=== PATIENT | female | born 1990 | race African-American/Black ===

== ENCOUNTER 2022-12-11 07:36 | Emergency (ER) | payer OTHER ==
[~2022-12-11] VITALS: Ht 149.9 cm; Wt 78.2 kg
[2022-12-11 08:35] VITALS: BP 126/92; PULSE 83; RESP 18; TEMP 97.7; O2SAT 95
[2022-12-11] MEDS ORDERED: IBUP-1456 PO (09:44)
[2022-12-11] MEDS ORDERED: METH-1182 PO (09:44)
== END 2022-12-11 09:50 | disposition home or self-care (01) ==
LOC: ER 07:36
DX: S16.1XXA Strain of muscle, fascia and tendon at neck level, initial encounter (principal); V49.88XA Car occupant (driver) (passenger) injured in other specified transport accidents, initial encounter; Y93.89 Activity, other specified; Y92.89 Other specified places as the place of occurrence of the external cause; Y99.8 Other external cause status
CPT/HCPCS: 72040

== ENCOUNTER 2023-08-12 09:32 | Emergency (ER) | payer SELFPAY ==
[~2023-08-12] VITALS: Ht 152.4 cm; Wt 76.0 kg
[~2023-08-12 09:32] MED LIST: IBUP-1456 PO; METH-1182 PO
[2023-08-12] MEDS ORDERED: CEPH250C PO (10:11)
[2023-08-12 10:36] LABS: Urine Bacteria None Seen /hpf (None Seen)
[2023-08-12 10:53] LABS: Urine Blood 3+ /uL (Negative); Urine Clarity Ex.Turbid (Clear); Urine Color Dark-Brown (Yellow); Urine Mucus FEW (None Seen); Urine Protein, UAD 2+ (Negative); Urine Specific Gravity 1.033 (1.001-1.035); Urine Urobilinogen 4 mg/dL (Negative); Urine WBC 154 /hpf (0 - 5)
[2023-08-12 11:13] VITALS: BP 116/79; PULSE 102; RESP 18; TEMP 98.3; O2SAT 96
== END 2023-08-12 11:19 | disposition home or self-care (01) ==
LOC: ER 09:32
DX: N39.0 Urinary tract infection, site not specified (principal); J02.9 Acute pharyngitis, unspecified; Z79.1 Long term (current) use of non-steroidal anti-inflammatories (NSAID); Z79.899 Other long term (current) drug therapy
CPT/HCPCS: 81001